=== PATIENT | female | born 1990 | race Caucasian/White ===

== ENCOUNTER 2021-11-03 18:53 | Emergency (ER) | payer OTHER ==
[~2021-11-03 18:53] MED LIST: ASPIR 8181 MG PO; BACTRIM DS TAB1 EACH PO; COLACE 100MG C100 MG PO; FLOMAX0.4 MG PO; IBUPROFEN600 MG PO; KEFLEX CAP 500500 MG PO; LORTAB 5-325 M1 EACH PO; METRONIDAZOLE PO; PERCOCET 5/325 T1 EA PO; PRENATAL VITAM1 EAC8 PO; PYRIDIUM100 MG PO; ZOFRAN ODT 4 MG4 MG PO; ZOFRAN ODT 4 MG4 MG SL
== END 2021-11-03 19:02 | disposition left against medical advice (07) ==
LOC: ER1 18:53
DX: Z53.21 Procedure and treatment not carried out due to patient leaving prior to being seen by health care provider (principal)